=== PATIENT | female | born 1960 | race Caucasian/White ===

== ENCOUNTER 2022-12-11 18:01 | Emergency (ER) | payer SELFPAY ==
[~2022-12-11] VITALS: Ht 160 cm; Wt 57.6 kg
[2022-12-11 18:13] VITALS: BP 95/66
--- NOTE | 2022-12-11 18:22 | NUR ---
BLOODGLUCOSE 308 IN TRIAGE
[2022-12-11] MEDS ORDERED: NACL 0.9% 1,000 ML IV ONE (18:50)
[2022-12-11] MEDS ORDERED: ONDANSETRON 4 MG/2 ML VIAL IVP ONE (18:50)
--- NOTE | 2022-12-11 19:03 | NUR ---
Patient ambulated with spouse to bed 8.
--- NOTE | 2022-12-11 19:04 | NUR ---
evaluating patient at bedside.
[2022-12-11 20:03] LABS: BASOPHILS % (AUTO) 0.4 % (0.0-2.0); HEMATOCRIT 36.9 % (36-48); HEMOGLOBIN 12.7 g/dL (12.0-16.0); LYMPHOCYTES # (AUTO) 1.2 K/uL (2.5-16.5); LYMPHOCYTES % (AUTO) 11.3 % (20.5-51.1); MEAN CORPUSCULAR HEMOGLOBIN 31 pg (27-31); MEAN CORPUSCULAR HGB CONC 34 g/dL (33-37); MEAN CORPUSCULAR VOLUME 91.4 fL (80-94); MONOCYTES # (AUTO) 0.7 K/uL (0.8-1.0); MONOCYTES % (AUTO) 6.6 % (1.7-9.3); NEUTROPHILS # (AUTO) 8.6 K/uL (1.8-7.7); NEUTROPHILS % (AUTO) 81.7 % (42.2-75.2); PLATELET COUNT (AUTO) 262 K/uL (140-450); RED BLOOD CELL COUNT(AUTO) 4.04 MIL/uL (4.20-5.40); RED CELL DISTRIBUTION WIDTH 13.9 % (11.6-13.7); WHITE BLOOD COUNT (AUTO) 10.5 K/uL (4.8-10.8)
--- NOTE | 2022-12-11 20:04 | NUR ---
62YR OLD FEMALE BIB FAMILY C/O HIGH GLUC /HEADACHE. PT IS A&OX4 [place] SPEAKING ONLY. DENIES CP OR SOB. PT ACCU CHECK 320 . COMPLIANTS OF HEADACHE 04/01 [place]. 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 RESP ARE EVEN AND UNLABORED. BED AT LOWEST POSITION NKDA DM
[2022-12-11 20:26] LABS: ALBUMIN 3.4 g/dL (3.4-5.0); ASPARTATE AMINOTRANSFERASE 17 U/L (15-37); CARBON DIOXIDE 30.1 mmol/L (21-32); CHLORIDE 96 mmol/L (98-107); CREATININE 0.8 mg/dL (0.6-1.3); GFR ARICAN-AMERICAN 94 mL/min (>90); GLUCOSE 336 mg/dL (74-106); POTASSIUM 4.1 mmol/L (3.5-5.1); SODIUM SERUM 133 mmol/L (136-145); TOTAL BILIRUBIN 0.8 mg/dL (0.0-1.0); UREA NITROGEN, BLOOD 12 mg/dL (7-18)
[2022-12-11] MEDS ORDERED: ONDA-188 PO (21:37)
[2022-12-11 21:58] VITALS: BP 114/70
--- NOTE | 2022-12-11 21:58 | NUR ---
Patient discharged with v/s stable. Written and verbal after care instructions given and explained. Patient verbalized understanding. Ambulatory with steady gait. All questions addressed prior to discharge. Advised to follow up with PMD.
== END 2022-12-11 21:58 | disposition home or self-care (01) ==
LOC: MED 18:01
DX: E11.65 Type 2 diabetes mellitus with hyperglycemia (principal); E86.0 Dehydration; R53.83 Other fatigue; Z79.4 Long term (current) use of insulin; Z79.899 Other long term (current) drug therapy
CPT/HCPCS: 36415; 80053; 82009; 82948; 83605; 84484; 85025; 96361; 96374; 99283; J2405; J7030